=== PATIENT | female | born 2000 | race Caucasian/White ===

== ENCOUNTER → 2023-06-16 07:34 | Outpatient (REF) | payer OTHER, SELFPAY ==
[2023-06-16 10:48] LABS: ALT (SGPT) 12 U/L (0-35); AST (SGOT) 23 U/L (14-36); Albumin 4.7 g/dl (3.5-5.0); Alkaline Phosphatase 52 U/L (38-126); Blood Urea Nitrogen 10 mg/dl (7-17); Calcium 9.5 mg/dl (8.4-10.2); Carbon Dioxide 26 mmol/L (22-30); Chloride 102 mmol/L (98-107); Glucose 100 mg/dl (70-99); Potassium 3.9 mmol/L (3.5-5.1); Sodium 139 mmol/L (135-145); Total Bilirubin 0.6 mg/dl (0.2-1.3); Total Protein 7.7 g/dl (6.3-8.2); eGFR > 60.00
[2023-06-16 10:59] LABS: FSH 4.8 mIU/ml; Prolactin 1.9 ng/ml (3.0-18.6)
[2023-06-16 11:13] LABS: TSH 1.21 uIU/ml (0.47-4.68)
[2023-06-16 11:14] LABS: Estradiol 35.8 pg/ml
== END ==
LOC: HWLAB 07:34
PROVIDERS: ATTENDING PHYSICIAN Internal Medicine Endocrinology, Diabetes & Metabolism; FAMILY PHYSICIAN Family Medicine
DX: D35.2 Benign neoplasm of pituitary gland (principal)
CPT/HCPCS: 36415; 80053; 82670; 83001; 83002; 84146; 84443

== ENCOUNTER → 2024-01-05 07:36 | Outpatient (REF) | payer OTHER, SELFPAY ==
[2024-01-05 09:43] LABS: ALT (SGPT) 16 U/L (0-35); AST (SGOT) 23 U/L (14-36); Albumin 4.5 g/dl (3.5-5.0); Alkaline Phosphatase 42 U/L (38-126); Blood Urea Nitrogen 14 mg/dl (7-17); Calcium 9.2 mg/dl (8.4-10.2); Carbon Dioxide 26 mmol/L (22-30); Chloride 103 mmol/L (98-107); Glucose 94 mg/dl (70-99); Potassium 4.2 mmol/L (3.5-5.1); Sodium 139 mmol/L (135-145); Total Bilirubin 0.2 mg/dl (0.2-1.3); Total Protein 7.2 g/dl (6.3-8.2); eGFR > 60.00
[2024-01-05 09:57] LABS: FSH 5.2 mIU/ml; Prolactin 2.5 ng/ml (3.0-18.6)
[2024-01-05 10:11] LABS: TSH 0.81 uIU/ml (0.47-4.68)
[2024-01-05 10:12] LABS: Estradiol 204.3 pg/ml
== END ==
LOC: HWLAB 07:36
PROVIDERS: ATTENDING PHYSICIAN Internal Medicine Endocrinology, Diabetes & Metabolism; FAMILY PHYSICIAN Family Medicine
DX: D35.2 Benign neoplasm of pituitary gland (principal)
CPT/HCPCS: 80053; 82670; 83001; 83002; 84146; 84443

== ENCOUNTER → 2024-01-15 07:50 | Outpatient (REF) | payer OTHER, SELFPAY | LOC: MRI 07:50 | PROVIDERS: ATTENDING PHYSICIAN Internal Medicine Endocrinology, Diabetes & Metabolism; FAMILY PHYSICIAN Family Medicine | DX: D35.2 Benign neoplasm of pituitary gland (principal) | CPT/HCPCS: 70553; A9575 ==

== ENCOUNTER → 2024-04-24 07:25 | Outpatient (REF) | payer BC, SELFPAY ==
[2024-04-24 09:30] LABS: % Basophils 0.9 % (0-2); % Eosinophils 8.7 % (0-6); % Immature Granulocytes 0.2 % (0-0.5); % Lymphocytes 42.4 % (20.5-51.1); % Monocytes 6.9 % (1.7-9.3); % Neutrophils 40.9 % (42.2-75.2); Absolute Basophils 0.1 10^3/uL (0-0.2); Absolute Eosinophils 0.5 10^3/uL (0-0.7); Absolute Lymphocytes 2.3 10^3/uL (1.2-3.4); Absolute Monocytes 0.4 10^3/uL (0.1-0.6); Absolute Neutrophils 2.2 10^3/uL (1.4-6.5); Hematocrit 37.5 % (37.0-47.0); Hemoglobin 12.2 g/dL (12.0-16.0); Mean Corp Hgb Conc. 32.5 g/dL (33.0-37.0); Mean Corpuscular Hgb 30.2 pg (27.0-31.0); Mean Corpuscular Volume 92.8 fL (81.0-99.0); Mean Platelet Volume 9.9 fL (7.4-10.4); Nucleated Red Blood Cells % 0 %; Platelet Count 216 10^3/uL (130-400); Red Blood Cell Count 4.04 10^6/uL (4.20-5.40); Red Cell Dist. Width 12.3 % (11.5-14.5); White Blood Cell Count 5.4 10^3/uL (4.8-10.8)
[2024-04-24 10:03] LABS: Urine Albumin 1+ (Neg - Trace); Urine Bilirubin Negative (Negative); Urine Character Clear (Clear); Urine Color Yellow; Urine Glucose Negative (Negative); Urine Ketone Negative (Negative); Urine Leukocyte 1+ (Negative); Urine Nitrite Negative (Negative); Urine Occult Blood Negative (Negative); Urine Specific Gravity 1.025 (<1.030); Urine Urobilinogen Negative (Neg - 1+)
[2024-04-24 10:28] LABS: Urine Mucus Few
[2024-04-24 10:29] LABS: Urine Amorphous Seen; Urine Bacteria Moderate (Negative); Urine Red Blood Cell 0-2 /HPF (0-2)
[2024-04-24 10:53] LABS: ALT (SGPT) 11 U/L (0-35); AST (SGOT) 20 U/L (14-36); Albumin 4.3 g/dl (3.5-5.0); Alkaline Phosphatase 44 U/L (38-126); Blood Urea Nitrogen 8 mg/dl (7-17); Calcium 8.9 mg/dl (8.4-10.2); Carbon Dioxide 24 mmol/L (22-30); Chloride 105 mmol/L (98-107); Glucose 95 mg/dl (70-99); HDL Cholesterol 57 mg/dl; LDL Cholesterol, Calculated 122 mg/dl; Potassium 4.2 mmol/L (3.5-5.1); Sodium 137 mmol/L (135-145); Total Bilirubin 0.7 mg/dl (0.2-1.3); Total Cholesterol 198 mg/dl (50-199); Total Protein 7.2 g/dl (6.3-8.2); Triglyceride 97 mg/dl (10-149); Very Low Density Lipoprotein 19 mg/dl (0-30); eGFR > 60.00
== END ==
LOC: HWLAB 07:25
PROVIDERS: ATTENDING PHYSICIAN Family Medicine
DX: Z79.899 Other long term (current) drug therapy (principal); R79.89 Other specified abnormal findings of blood chemistry; G47.33 Obstructive sleep apnea (adult) (pediatric); E78.00 Pure hypercholesterolemia, unspecified
CPT/HCPCS: 36415; 80053; 80061; 81003; 81015; 82306; 85025

== ENCOUNTER → 2024-05-03 07:56 | Outpatient (REF) | payer BC, SELFPAY | LOC: RAD 07:56 | PROVIDERS: ATTENDING PHYSICIAN Family Medicine | DX: R29.3 Abnormal posture (principal); Q67.7 Pectus carinatum | CPT/HCPCS: 71101; 72082 ==

== ENCOUNTER → 2024-05-06 16:50 | Outpatient (REF) | payer BC, SELFPAY | LOC: HWRAD 16:50 | PROVIDERS: ATTENDING PHYSICIAN Family Medicine | DX: M54.2 Cervicalgia (principal) | CPT/HCPCS: 72050 ==

== ENCOUNTER → 2024-09-13 07:16 | Outpatient (REF) | payer BC, SELFPAY ==
[2024-09-13 09:13] LABS: ALT (SGPT) 12 U/L (0-35); AST (SGOT) 20 U/L (14-36); Albumin 4.7 g/dl (3.5-5.0); Alkaline Phosphatase 43 U/L (38-126); Blood Urea Nitrogen 11 mg/dl (7-17); Calcium 9.0 mg/dl (8.4-10.2); Carbon Dioxide 24 mmol/L (22-30); Chloride 105 mmol/L (98-107); Glucose 98 mg/dl (70-99); Potassium 4.1 mmol/L (3.5-5.1); Sodium 138 mmol/L (135-145); Total Protein 7.5 g/dl (6.3-8.2); eGFR > 60.00
[2024-09-13 09:27] LABS: FSH 5.5 mIU/ml
[2024-09-13 09:41] LABS: TSH 1.45 uIU/ml (0.47-4.68)
== END ==
LOC: HWLAB 07:16
PROVIDERS: ATTENDING PHYSICIAN Internal Medicine Endocrinology, Diabetes & Metabolism; FAMILY PHYSICIAN Family Medicine
DX: D35.2 Benign neoplasm of pituitary gland (principal); N91.2 Amenorrhea, unspecified
CPT/HCPCS: 36415; 80053; 82670; 83001; 83002; 84146; 84439; 84443